=== PATIENT | female | born 1980 | race Caucasian/White ===

== ENCOUNTER 2017-12-31 11:51 | Emergency (ER) | payer OTHER ==
[~2017-12-31] VITALS: Ht 177.8 cm; Wt 99.8 kg
[2017-12-31] MEDS ORDERED: NAPROSYN500 MG PO ×2 (13:36→14:05)
[2017-12-31] MEDS ORDERED: ROBAXIN 750 MG750 M1 PO ×2 (13:36→14:05)
[2017-12-31] MEDS ORDERED: MEDROLDOSEPACK PO ×2 (13:36→14:05)
[2017-12-31 14:09] VITALS: BP 120/73
== END 2017-12-31 14:10 | disposition home or self-care (01) ==
LOC: M.ERS 11:51
DX: S16.1XXA Strain of muscle, fascia and tendon at neck level, initial encounter (principal); Z88.1 Allergy status to other antibiotic agents; V59.49XA Driver of pick-up truck or van injured in collision with other motor vehicles in traffic accident, initial encounter; Y93.I9 Activity, other involving external motion; Y92.89 Other specified places as the place of occurrence of the external cause; Y99.8 Other external cause status